=== PATIENT | female | born 1970 | race Caucasian/White ===

== ENCOUNTER 2019-09-01 16:26 | Emergency (ER) | payer OTHER ==
[~2019-09-01] VITALS: Ht 160 cm; Wt 90.7 kg
[~2019-09-01 16:26] MED LIST: AUGMENTIN 875875 MG PO; LASIX20 MG PO; NEURONTIN300 MG PO; OMNICEF300 MG PO; PERCOCET 325 MG1 TA7 PO; SOMA350 MG PO; TORADOL10 MG PO; VICODIN 5/500 505 MG; VICODIN 5/500 505 MG PO; VICODIN ES 7501 TAB PO; Vicodin 5/500 505 MG PO; ZOFRAN ODT4 MG SL
[2019-09-01 17:12] LABS: BILIRUBIN NEGATIVE (NEGATIVE); BLOOD 3+ (NEGATIVE); CLARITY CLEAR (CLEAR); COLOR YELLOW (YELLOW); GLUCOSE NEGATIVE (NEGATIVE); KETONE NEGATIVE (NEGATIVE); LEUKO ESTERASE NEGATIVE (NEGATIVE); NITRITE POSITIVE (NEGATIVE)
[2019-09-01 17:29] LABS: BACTERIA 1+; RBC TNTC rbc/hpf (0-2)
[2019-09-01 17:55] LABS: BASO % 0.3 % (0.0-1.0); EOS % 0.4 % (1.0-4.0); HEMATOCRIT 39.7 % (37.0-47.0); HEMOGLOBIN 13.1 g/dl (12.0-16.0); LYMPH # 1.4 10*3/uL (1.3-4.4); LYMPH % 13.5 % (27.0-41.0); MEAN CELL VOLUME 88.4 fl (81.0-99.0); MEAN CORPUSCULAR HGB 29.2 pg (27.0-31.0); MEAN PLATELET VOLUME 9.5 fl (9.6-12.3); MONO # 0.6 10*3/uL (0.1-1.0); MONO % 6.3 % (3.0-9.0); NEUT # 7.9 10*3/uL (2.3-7.9); NEUT % 79.1 % (47.0-73.0); PLATELET COUNT AUTOMATED 219 10*3/uL (130-400); RED BLOOD COUNT 4.49 10*6/uL (4.10-5.10); RED CELL DISTRI WIDTH 12.4 % (0-14.5)
[2019-09-01 18:12] LABS: ALBUMIN 4.4 gm/dl (3.1-4.5); CREATININE 1.21 mg/dL (0.55-1.02); POTASSIUM 4.1 mmol/L (3.5-5.1); TOTAL PROTEIN 7.7 gm/dL (6.4-8.2)
== END 2019-09-01 20:53 | disposition short-term general hospital (02) ==
LOC: ED 16:26
PROVIDERS: Physician Assistant
DX: N17.9 Acute kidney failure, unspecified (principal); N13.2 Hydronephrosis with renal and ureteral calculous obstruction; N39.0 Urinary tract infection, site not specified; Z87.442 Personal history of urinary calculi; Z88.8 Allergy status to other drugs, medicaments and biological substances; Z88.5 Allergy status to narcotic agent; Z79.899 Other long term (current) drug therapy

== ENCOUNTER 2020-12-09 22:27 | Emergency (ER) | payer OTHER ==
[~2020-12-09] VITALS: Ht 160 cm; Wt 90.7 kg
[2020-12-10] MEDS ORDERED: HYDROCODONE-AC1 EAC1 PO (01:38)
== END 2020-12-10 01:47 | disposition home or self-care (01) ==
LOC: ED 22:27
DX: S82.62XA Displaced fracture of lateral malleolus of left fibula, initial encounter for closed fracture (principal); Z88.8 Allergy status to other drugs, medicaments and biological substances; Z79.899 Other long term (current) drug therapy; Z90.711 Acquired absence of uterus with remaining cervical stump; Z98.890 Other specified postprocedural states; X58.XXXA Exposure to other specified factors, initial encounter; Y93.89 Activity, other specified; Y92.89 Other specified places as the place of occurrence of the external cause; Y99.8 Other external cause status